=== PATIENT | male | born 1980 | race Hispanic/Latino ===

== ENCOUNTER 2019-03-05 17:54 | Emergency (ER) | payer SELFPAY ==
[~2019-03-05] VITALS: Ht 167.6 cm; Wt 90.7 kg
[2019-03-05] MEDS ORDERED: TETANUS/DIPHTHERIA TOX ADULT 0.5 ML SYR IM STA (19:29)
[2019-03-05] MEDS ORDERED: MUPIROCIN 2% OINT 22 GM TUBE TOP ONE (19:30)
[2019-03-05] MEDS ORDERED: LIDOCAINE HCL 1% LOCAL INJ 20 ML VIAL INJ NR (19:45)
--- NOTE | 2019-03-05 21:17 | NUR ---
2ND CALL. NO RESPONSE.
== END 2019-03-05 21:17 | disposition left against medical advice (07) ==
LOC: ER 17:54
DX: S69.92XA Unspecified injury of left wrist, hand and finger(s), initial encounter (principal)
CPT/HCPCS: 90471; 90714; J2001